=== PATIENT | male | born 1955 | race Caucasian/White ===

== ENCOUNTER 2018-05-08 01:28 | Emergency (ER) | payer MEDICARE, OTHER, MEDICAID ==
[2018-05-08 06:59] LABS: ADD MAN DIFF? NO
[2018-05-08 07:03] LABS: BASOPHILS % 0.4 % (0.0-2.0); EOSINOPHILS # 0.1 10^3/ul (0.0-0.5); EOSINOPHILS % 1.9 % (0.0-7.0); HEMATOCRIT 37.8 % (42.0-52.0); HEMOGLOBIN 13.6 g/dl (14.0-18.0); LYMPHOCYTES # 1.6 10^3/ul (0.8-2.9); MEAN CORPUSCULAR VOLUME 91.7 fl (82.0-101.0); MEAN PLATELET VOLUME 8.8 fl (7.4-10.4); MONOCYTE # 0.5 10^3/ul (0.3-0.9); MONOCYTES % 7.5 % (0.0-11.0); NEUTROPHIL # 4.6 10^3/ul (1.6-7.5); NEUTROPHILS % 66.6 % (39.0-77.0); PLATELET COUNT 116 10^3/UL (140-415); RED BLOOD COUNT 4.12 10^6/ul (4.70-6.10); RED CELL DISTRIBUTION WIDTH 12.6 % (11.5-14.5)
[2018-05-08 07:03] LABS: WHITE BLOOD COUNT 6.9 10^3/ul (4.8-10.8)
[2018-05-08] MEDS: LIDOCAINE 2% VISC 15 ML CUP PO (07:13)
[2018-05-08 07:37] LABS: ANION GAP 11 (5-13); BLOOD UREA NITROGEN 29 mg/dl (7-20); CALCIUM 9.3 mg/dl (8.4-10.2); CARBON DIOXIDE 25 mmol/L (21-31); CHLORIDE 108 mmol/L (97-110); CREATININE 1.24 mg/dl (0.61-1.24); Estimated GFR 59 mL/min (>60); GLUCOSE 113 mg/dl (70-220); POTASSIUM 4.2 mmol/L (3.5-5.1); SODIUM 144 mmol/L (135-144)
[2018-05-08 07:47] LABS: TROPONIN-I < 0.012 ng/ml (0.000-0.120)
[2018-05-08] MEDS: SOD CHLORIDE 0.9% 100 ML (08:02)
[2018-05-08] MEDS: IODIXANOL LOCM 100 ML BTL (08:04)
== END 2018-05-08 12:30 | disposition home or self-care (01) ==
LOC: E/R 01:28
DX: S27.818A Other injury of esophagus (thoracic part), initial encounter (principal); I10 Essential (primary) hypertension; E11.9 Type 2 diabetes mellitus without complications; X58.XXXA Exposure to other specified factors, initial encounter; Y92.9 Unspecified place or not applicable; Z79.4 Long term (current) use of insulin
CPT/HCPCS: 36415; 70491; 80048; 84484; 85025; 93005; 99285-25